=== PATIENT | male | born 1935 | race American Indian/Alaskan Native ===

== ENCOUNTER 2017-02-13 07:30 | Inpatient (IN) | payer MEDICARE ==
[2017-03-14] MEDS ORDERED: VANCOMYCIN/NS 1 GM/250 ML 1 GM/250 ML BAG IV NR (06:00)
--- NOTE | 2017-04-06 11:22 | Anesthesia Consultation ---
Anesthesia Consult and Med Hx Date of service: 04/06/17 - Airway Anesthetic Teeth Evaluation: Good, Partials ROM Head & Neck: Adequate Mental/Hyoid Distance: Adequate Mallampati Class: Class II Intubation Access Assessment: Probably Good - Pulmonary Exam CTA: Yes - Cardiac Exam Cardiac Exam: RRR - Pre-Operative Health Status ASA Pre-Surgery Classification: ASA2 Proposed Anesthetic Plan: General - Pulmonary Hx Smoking: No Hx Sleep Apnea: No (HAKEEM PRE SCREEN HIGH RISK) - Cardiovascular System Hx Hypertension: Yes (X 7 MONTHS) - Central Nervous System Hx Psychiatric Problems: No - Hematic Hx Anemia: No - Other Systems Hx Alcohol Use: No Hx Substance Use: No Hx Cancer: No
[2017-04-06 11:29] LABS: Eosinophils % (Auto) 1.7 % (0.0-4.3); Hematocrit 38.5 % (35.5-45.6); Hemoglobin 12.5 gm/dl (11.8-15.2); Mean Corpuscular HGB Conc 32 % (32-34); Mean Corpuscular Hemoglobin 28 pg (28-32); Mean Corpuscular Volume 85 fl (84-94); Platelet Count 196 K/mm3 (140-440); Red Blood Count 4.51 M/mm3 (3.65-5.03); Red Cell Distribution Width 15.3 % (13.2-15.2)
[2017-04-06 11:43] LABS: INR 1.13 (0.87-1.13)
[2017-04-06 11:44] LABS: Partial Thromboplastin Time 29.3 Sec. (24.2-36.6)
[2017-04-06 12:16] LABS: Alanine Aminotransferase 11 units/L (7-56); Albumin 4.2 g/dL (3.9-5); Albumin/Globulin Ratio 1.2 %; Alkaline Phosphatase 97 units/L (35-129); Anion Gap 17 mmol/L; Blood Urea Nitrogen 18 mg/dL (9-20); Calcium 8.8 mg/dL (8.4-10.2); Carbon Dioxide 25 mmol/L (22-30); Chloride 108.6 mmol/L (98-107); Glucose 100 mg/dL (75-100); Potassium 3.8 mmol/L (3.6-5.0); Sodium 147 mmol/L (137-145); Total Protein 7.6 g/dL (6.3-8.2)
[2017-04-06] MEDS ORDERED: PEPCID PO NR (13:00)
[2017-04-06] MEDS ORDERED: LACTATED RINGERS 1,000 ML IV SCH (13:00)
[2017-04-06] MEDS ORDERED: VERSED IV NR (13:00)
[2017-04-11] MEDS ORDERED: NACL BACTERIOSTATIC INFILTRATI ONE (06:36)
[2017-04-11] MEDS ORDERED: TRANEXAMIC ACID ONE (07:19)
[2017-04-11] MEDS ORDERED: NACL ONE (07:19)
[2017-04-11] MEDS ORDERED: ACD-A 500 ML IV ONE (07:19)
[2017-04-11] MEDS ORDERED: NACL P/F VIAL (10 ML) 30 ML ONE (07:19)
[2017-04-11] MEDS ORDERED: VANCOMYCIN VIAL ONE (07:19)
[2017-04-11] MEDS ORDERED: NEOSPORIN GU IR ONE ×2 (07:20→08:27)
[2017-04-11] MEDS ORDERED: MARCAINE-EPI 0.25%-1:200,000 INFILTRATI ONE ×2 (07:20→08:27)
[2017-04-11] MEDS ORDERED: LACTATED RINGERS 1,000 ML ONE ×2 (07:20→09:12)
[2017-04-11] MEDS ORDERED: PEPCID ONE (07:34)
[2017-04-11] MEDS ORDERED: MORPHINE ONE (07:38)
--- NOTE | 2017-04-11 07:45 | Anesthesia Day of Surgery ---
Anesthesia Day of Surgery - Day of Surgery Patient Examined: Yes Patient H&P Reviewed: Yes Patient is NPO: Yes Cardiac Clearance: Yes
[2017-04-11] MEDS ORDERED: DIPRIVAN 10 MG/ML IV ONE (07:53)
[2017-04-11] MEDS ORDERED: KETALAR ONE (07:53)
[2017-04-11] MEDS ORDERED: NEURONTIN PO NR (08:00)
[2017-04-11] MEDS ORDERED: ANCEF/STERILE WATER 2 GM/20 ML IV NR (08:00)
[2017-04-11] MEDS ORDERED: PEPCID PO NR (08:00)
[2017-04-11] MEDS ORDERED: LACTATED RINGERS 1,000 ML IV ONE (08:00)
[2017-04-11] MEDS ORDERED: MORPHINE IV ONE (08:00)
[2017-04-11] MEDS ORDERED: VERSED IV PRN (08:00)
[2017-04-11] MEDS ORDERED: NACL 0.9% IR ONE (08:27)
[2017-04-11] MEDS ORDERED: TRANEXAMIC ACID IV ONE (08:27)
[2017-04-11] MEDS ORDERED: NACL INFILTRATI ONE (08:27)
[2017-04-11] MEDS ORDERED: VANCOMYCIN VIAL IRRIGATION ONE (08:27)
[2017-04-11] MEDS ORDERED: NACL P/F VIAL (10 ML) INFILTRATI ONE (08:27)
[2017-04-11] MEDS ORDERED: XYLOCAINE MPF 2% ONE ×3 (08:57→09:52)
[2017-04-11] MEDS ORDERED: NEO SYNEPHRINE/NS Syringe(OR USE) IV ONE (09:00)
[2017-04-11] MEDS ORDERED: ePHEDrine SULFATE ONE (09:00)
[2017-04-11] MEDS ORDERED: NACL P/F VIAL (10 ML) 10 ML ONE (09:01)
[2017-04-11] MEDS ORDERED: NACL 0.9% 1000 ML 2,000 ML ONE (09:27)
--- NOTE | 2017-04-11 09:37 | Admit Criteria Form ---
Admission Criteria Documentation: AMBULATORY SURGERY EXCEPTION CRITERIA Ambulatory Surgery Exception Criteria ( Place 'X' for any and all applicable criteria): Surgery or procedure performed on ambulatory basis may require inpatient stay for[A] ANY ONE of the following(1)(2)(3)(4)(5)(6)(7)(8)(9): [X] I. A preoperative situation, condition, or finding that warrants inpatient stay as indicated by ANY ONE of the following: [X] a) Inpatient care needed because of severity of a disease or condition rather than the surgery (eg, severe cardiac or respiratory disease, severe infection) (15) (16 ) (17) (18) [] b) Emergent procedure (eg, angioplasty for acute ischemia)(19) [] c) Complex surgical approach or situation as indicated by ANY ONE of the following(3): [] i) Open approach needed instead of usual endoscopic, transcatheter, or other less invasive procedure [] ii) Difficult approach because of previous operation [] iii) Airway monitoring required after open neck procedures(20)(21) [] iv) Large mass requiring unusually extensive dissection [] v) Additional complicating feature requiring inpatient care (eg, drain management)(22(23): [] d) Major surgery in a pt with high anesthetic risk as indicated by ANY ONE of the following (2)(3)(5)(7)(8): [] i) ASA risk class III or higher (severe systemic disease impairing function) [D] [] ii) Advanced age (eg, older than 85 years)(14)(24) [] iii) Symptomatic heart failure(25) [] iv) Symptomatic asthma or COPD(8)(21) [] v) Morbid obesity with hemodynamic or respiratory problems(20)( 21)(26)(27) [] vi) Obstructive sleep apnea(20)(21) [] vii) Former premature infants who are younger than 60 weeks [] viii) High risk for severe postoperative abnormalities (eg, severe postoperative hypocalcemia after parathyroidectomy for severe hyperparathyroidism)(27)( 28) [] ix) Unstable angina(25) [] e) Drug-related risk requiring inpatient stay as indicated by ANY ONE of the following(5)(10)(14)(32)(33) [] i) Procedure requires discontinuing drugs or other therapy (eg , antiarrhythmic medication, antiseizure medication), which necessitates inpatient observation or treatment.(18)(31) [] ii) Major surgery and high risk drug use as indicated by ANY ONE of the following: [] 1) Active abuse of cocaine or similar drug [] 2) Monoamine oxidase inhibitor use [] 3) Other drug identified as posing risk [] f) Inadequate outpatient care situation as indicated by ANY ONE of the following(5)(10)(14)(32)(33) [] i) Patient lives remote from medical facility and procedure has urgent complication potential, and temporary nearby residence cannot be arranged [] ii) Patient will have postprocedure incapacitation and inadequate assistance at home, or alternative level of care cannot be arranged. [] iii) Patient will have long general anesthesia or procedure side effect resolution time, and competent person to stay with patient on first postoperative night at home or alternative level of care cannot be arranged. []iv) Other inadequate outpatient situation that cannot be handled by other means [] II. A perioperative event, condition, or finding that warrants inpatient stay as indicated by ANY ONE of the following (1)(2)(3): [] a) Inadequate physiologic recovery: cardiovascular, respiratory, or hemodynamic status not normal or near preoperative baseline(18) [] b) Hemodynamic instability [] c) Patient not alert with near normal or baseline mental status [] d) Temperature not normal or as expected and not appropriate for outpatient treatment of condition [] e) Ambulatory or appropriate activity level status not yet achieved post procedure [E](34)(35)(36) [] f) Operative site not appropriate (eg, unexpected or excessive drainage or bleeding) [] g) Postoperative effects not resolved or adequately managed (eg, significant pain or vomiting not appropriate for outpatient or next level of care)(10)(12) [] h) Complicating features requiring inpatient care as indicated by ANY ONE of the following(37): [] i) Severe complications of procedure (eg, bowel injury, airway compromise, vascular injury,severe hemorrhage) [] ii) Extensive (eg, dissection far beyond usual scope of procedure ) or prolonged (eg, 120 minutes beyond usual) surgery needed requiring inpatient postoperative care [] iii) Conversion to an open or complex procedure that requires inpatient care (eg, open vs laparoscopic cholecystectomy, abdominal vs vaginal hysterectomy)(38) [] iv) Comorbid condition or test result identified during or post procedure that requires inpatient care (7) [] v) Malignant hyperthermia(30) [] vi) Other complicating feature requiring inpatient care(22)(23) Inpatient stay may be needed until ALL of the following are present (1)(2)(3)(4) (5)(6)(10)(14)(33)(40): []a) Physiologic recovery: cardiovascular, respiratory, and hemodynamic status normal or near preoperative baseline []b) Hemodynamic stability []c) Patient alert, with near normal or baseline mental status []d) Temperature appropriate: patient afebrile or temperature appropriate for outpt treatment of condition []e) Activity level appropriate: ambulatory or appropriate activity level post procedure []f) Operative site appropriate as indicated by ALL of the following: []i) Site dry or with expected drainage []ii) Any blood noted is as expected for procedure. []g) Postoperative effects resolved or managed as indicated by ALL of the following: []i) Pain management appropriate for outpatient (or next level of) care(10) []ii) Minimal nausea and vomiting: if present, successfully treated with oral medication(12) []iii) Headache, dizziness, or drowsiness (if present) are mild. []h) Voiding status acceptable as indicated by ANY ONE of the following: []i) Voiding spontaneously []ii) No voiding but instructions given for follow-up in 6 to 8 hours []iii) Urinary catheter in place, and instructions given for follow-up []i) Complicating features requiring inpatient care manageable at a lower level of care(37) []j) Comorbid conditions manageable at a lower level of care(37) The original [employer] content created by [employer] has been revised. The portions of the content which have been revised are identified through the use of italic text or in bold, and [employer] has neither reviewed nor approved the modified material. All other unmodified content is copyright [employer]. Please see references footnoted in the original [employer] edition 2016 Admission Criteria Met: Yes
[2017-04-11] MEDS ORDERED: NACL 0.9% 100 ML ONE (09:56)
--- NOTE | 2017-04-11 10:08 | Short Stay Summary ---
Short Stay Documentation Date of service: 04/11/17 - History H&P: obtained from office - Allergies and Medications Current Medications: Allergies No Known Allergies Allergy (Verified 02/26/15 08:30) Home Medications Medication Instructions Recorded Confirmed Last Taken Type AtorvaSTATin [Lipitor] 10 mg PO DAILY 02/01/17 02/01/17 Unknown History Aspirin [Adult Low Dose Aspirin EC] 81 mg PO DAILY 04/03/17 04/03/17 Unknown History Losartan [Cozaar] 50 mg PO QDAY 04/03/17 04/03/17 Unknown History Active Medications Cefazolin Sodium (Ancef/Sterile Water 2 Gm/20 Ml) 2 gm IV PREOP NR Stop: 04/11/17 12:00 Celecoxib (Celebrex) 200 mg PO PREOP NR Stop: 04/11/17 12:00 Last Admin: 04/11/17 07:30 Dose: 200 mg Famotidine (Pepcid) 20 mg PO PREOP NR Stop: 04/11/17 21:00 Last Admin: 04/11/17 07:30 Dose: 20 mg Gabapentin (Neurontin) 300 mg PO PREOP NR Stop: 04/11/17 12:00 Last Admin: 04/11/17 07:30 Dose: 300 mg Midazolam HCl (Versed) 2 mg IV PREOP PRN PRN Reason: Anxiety Stop: 04/11/17 12:00 Last Admin: 04/11/17 07:42 Dose: 2 mg - Brief post op/procedure progress note Date of procedure: 04/11/17 Pre-op diagnosis: degenerative arthritis right hip Post-op diagnosis: same Procedure: Right Total hip replacement, anterior approach Anesthesia: GETA Findings: djd Surgeon: MAURICE HIDALGO Hostler Helper: TREV GORDON Estimated blood loss: other (250cc autologous transfusion 125cc) - Disposition Condition at discharge: Stable - Discharge Diagnoses (1) Degenerative joint disease of right hip Status: Acute Qualifiers: Osteoarthritis type: primary Qualified Code(s): M16.11 - Unilateral primary osteoarthritis, right hip Short Stay Discharge Plan Follow up with: DARSHAN SOLOMON MD [Primary Care Provider] - 7 Days
[2017-04-11] MEDS ORDERED: MORPHINE IV PRN (10:30)
--- NOTE | 2017-04-11 10:57 | XRay Report ---
INTRAOPERATIVE RIGHT HIP RADIOGRAPH INDICATION: Right hip fracture, osteoarthritis. COMPARISON: None similar. FINDINGS: Intraoperative fluoroscopic guidance provided. Image demonstrates right hip arthroplasty. CONCLUSION: Intraoperative fluoroscopic guidance provided, as described. Thank you for the opportunity to participate in this patient's care.
[2017-04-11] MEDS: COZAAR PO SCH (11:00)
--- NOTE | 2017-04-11 12:22 | Post Anesthesia Evaluation ---
- Post Anesthesia Evaluation Patient Participated: Yes Airway Patent: Yes Stable Respiratory Function: Yes Nausea/Vomiting: No Temp > 96.8F: Yes Pain Manageable: Yes Adequeate Hydration: Yes Anesthesia Complications: No
--- NOTE | 2017-04-12 07:57 | Discharge Summary ---
Providers - Providers Date of Admission: 04/11/17 06:03 Attending physician: MAURICE HIDALGO 04/11/17 Consult to Case Management [CONS] Routine Services Needed at Discharge: Home Health Services Physical Therapy DME Equipment Notified:: . Phone number called:: . Was contact made?: No Time called:: 01:00 04/11/17 13:43 Physical Therapy Evaluation and Treat [CONS] Routine Comment: Reason For Exam: s/p right total hip replacement Mode of Transport?: Wheelchair Weight bearing status?: Partial wt bearing Assistive devices?: Yes If so list: Walker Primary care physician: DARSHAN SOLOMON Hospitalization Condition: Stable - Discharge Diagnoses (1) Degenerative joint disease of right hip Status: Acute Qualifiers: Osteoarthritis type: primary Qualified Code(s): M16.11 - Unilateral primary osteoarthritis, right hip Core Measure Documentation - Palliative Care Palliative Care/ Comfort Measures: Not Applicable - Core Measures Any of the following diagnoses?: none - VTE Discharge Requirements Deep Vein Thrombosis/Pulmonary Embolism Present on Admission: No Has pt received <5 days of overlap therapy or INR<2.0: No Anticoagulant overlap therapy prescribed at discharge: Yes Exam - Constitutional Vitals: Temp Pulse Resp BP Pulse Ox 99.9 F H 84 20 110/58 95 04/12/17 07:15 04/12/17 07:15 04/12/17 07:15 04/12/17 07:15 04/12/17 07:15 Plan Weight Bearing Status: Weight Bear as Tolerated Diet: regular Wound: keep clean and dry Durable Medical Equipment Needed Upon Discharge: Walker-Dino Follow up with: DARSHAN SOLOMON MD [Primary Care Provider] - 7 Days
[2017-04-12] MEDS: COZAAR PO SCH (09:00)
[2017-04-12] MEDS: NORCO 5/325 PO PRN ×2 (09:49→18:41)
--- NOTE | 2017-04-12 10:50 | Progress Note ---
Subjective Date of service: 04/12/17 Interval history: 1st POD after total hip replacement Patient is out of the bed, walking with physical therapist. He was comfortable all night. Pain is well controlled with pain meds. Ambulates well. No residual neurological deficit. No anesthesia complications Objective - Constitutional Vitals: Vital Signs - 12hr 04/11/17 04/12/17 04/12/17 23:00 04:00 07:15 Temperature 99.2 F 100.0 F H 99.9 F H Pulse Rate [ 84 96 H 84 Left] Pulse Rate [ 84 96 H 84 Right From Monitor] Respiratory 20 20 20 Rate Blood Pressure 136/69 103/61 110/58 [Left Arm] O2 Sat by Pulse 97 95 95 Oximetry - Labs CBC & Chem 7: 04/06/17 11:10 04/06/17 11:10
[2017-04-12] MEDS: TYLENOL PO PRN ×2 (13:12→23:44)
[2017-04-13] MEDS: NORCO 5/325 PO PRN ×2 (08:16→22:20)
[2017-04-13] MEDS: COZAAR PO SCH (09:58)
--- NOTE | 2017-04-13 16:18 | Progress Note ---
Assessment and Plan - Patient Problems (1) H/O total hip arthroplasty Status: Acute Qualifiers: Laterality: right Qualified Code(s): Z96.641 - Presence of right artificial hip joint Plan to address problem: Will check urine for UTI, hold off discharge pending resolution of febrile episode. Continue with progressive ambulation, DVT prophylaxis. Subjective Date of service: 04/13/17 Interval history: Total hip arthroplasty, low-grade temperature. Incision clean there is mild swelling, no evidence of DVT. Out of bed. Objective Vital signs: Vital Signs - 12hr 04/13/17 04/13/17 08:00 11:48 Temperature 100.4 F H 97.9 F Pulse Rate [ 98 H 95 H Apical] Pulse Rate [ 98 H 95 H Left] Pulse Rate [ 98 H 95 H Right From Monitor] Respiratory 20 16 Rate Blood Pressure 173/90 96/67 [Left Arm] O2 Sat by Pulse 97 Oximetry - Labs CBC & BMP: 04/06/17 11:10 04/06/17 11:10
[2017-04-13 18:49] LABS: Bacteria,Urine 1+ /HPF (Negative); Bilirubin,Urine NEG (Negative); Blood,Urine MOD (Negative); Ketones,Urine NEG (Negative); Leukocyte Esterase,Urine NEG (Negative); Nitrite,Urine NEG (Negative); Protein,Urine <15 mg/dL mg/dL (Negative); Urobilinogen,Urine < 2.0 mg/dL (<2.0); WBC,Urine < 1.0 /HPF (0.0-6.0)
[2017-04-14 08:24] VITALS: BP 137/76
[2017-04-14] MEDS: COZAAR PO SCH (09:47)
[2017-04-14] MEDS ORDERED: DULCOLAX PR ONE (12:12)
--- NOTE | 2017-04-14 12:13 | Progress Note ---
Assessment and Plan - Patient Problems (1) H/O total hip arthroplasty Status: Acute Qualifiers: Laterality: right Qualified Code(s): Z96.641 - Presence of right artificial hip joint Plan to address problem: Out of bed. Afebrile. Stable for discharge to home today. Follow up in the office on discharge. Continue with rehabilitation program and DVT prophylaxis. Subjective Date of service: 04/14/17 Interval history: Afebrile overnight, urine unremarkable. There is a small blister over the lateral skin flap, to be drained. Objective Vital signs: Vital Signs - 12hr 04/14/17 04/14/17 07:30 09:47 Temperature 98.8 F Pulse Rate 88 Pulse Rate [ 88 Apical] Pulse Rate [ 88 Left] Pulse Rate [ 88 Right From Monitor] Respiratory 18 Rate Blood Pressure 137/76 Blood Pressure 137/76 [Left Arm] O2 Sat by Pulse 97 Oximetry - Labs CBC & BMP: 04/06/17 11:10 04/06/17 11:10
--- NOTE | 2017-04-15 10:28 | Discharge Summary ---
Providers - Providers Date of Admission: 04/11/17 06:03 Date of discharge: 04/14/17 Attending physician: MAURICE HIDALGO 04/11/17 Consult to Case Management [CONS] Routine Services Needed at Discharge: Home Health Services Physical Therapy DME Equipment Notified:: . Phone number called:: . Was contact made?: No Time called:: 01:00 04/11/17 13:43 Physical Therapy Evaluation and Treat [CONS] Routine Comment: Reason For Exam: s/p right total hip replacement Mode of Transport?: Wheelchair Weight bearing status?: Partial wt bearing Assistive devices?: Yes If so list: Walker Primary care physician: DARSHAN SOLOMON Hospitalization Reason for admission: DJD right hip Condition: Stable Procedures: rright total hip arthroplasty, anterior approach, Damien, noncemented. Hospital course: uneventful Disposition: TO HOME OR SELFCARE - Discharge Diagnoses (1) H/O total hip arthroplasty Status: Acute Qualifiers: Laterality: right Qualified Code(s): Z96.641 - Presence of right artificial hip joint Core Measure Documentation - Palliative Care Palliative Care/ Comfort Measures: Not Applicable - Core Measures Any of the following diagnoses?: none Exam - Constitutional Vitals: Temp Pulse Resp BP Pulse Ox 98.8 F 88 18 137/76 97 04/14/17 07:30 04/14/17 09:47 04/14/17 07:30 04/14/17 09:47 04/14/17 07:30 Plan Activity: advance as tolerated, no driving until cleared by PCP, up only with assistance, fall precautions Weight Bearing Status: Weight Bear as Tolerated Diet: regular Wound: per your surgeon's advice Durable Medical Equipment Needed Upon Discharge: Walker-Rolling, Bedside commode -elevated Follow up with: DARSHAN SOLOMON MD [Primary Care Provider] - 7 Days MAURICE HIDALGO MD [Staff Physician] - 7 Days
--- NOTE | 2017-04-17 01:27 | Operative Report ---
PREOPERATIVE DIAGNOSIS: Degenerative arthritis, right hip. PROCEDURE: Right total hip replacement arthroplasty (direct anterior approach). SURGEON: Gabriel Alvarado MD. EDGE KITTER: Nneka Payne RN. ANESTHESIA: Local with general. COMPLICATIONS: None. DESCRIPTION OF PROCEDURE: Once the patient was in the surgical room, a time-out was carried out to identify the patient and procedure. The patient was prepped and draped in usual sterile fashion. The patient was placed on surgical table (Tricia) in the appropriate position to allow for exposure of the both hip joints. Once this was done, the procedure was carried out by making an incision of 10 cm in length that was entered at 1 inch below the anterior superior iliac spine and 1 inch in front extending across the front of the thigh. Dissection was carried out through the subcutaneous tissue. Hemostasis was achieved. Fascia was exposed. By incising the fascia and elevation of the area, coagulation of the fat pad vessels was done, resection of fat pad, exposure of the hip capsule, retractors applied, capsulectomy at the anterior hip joint was done. Following that the femoral neck was cut using the napkin ring technique. The femoral head was removed. The procedure continued by insertion of the appropriate retractors to the posterior acetabulum, the acetabulum was then reamed using fluoroscopy without any problems. The acetabular liner was applied and locked in place and was found to be stable. Once this was done, the procedure was continued by fixation with multiple screws and insertion of the liner. At this point, the attention was carried out to the femur. The femoral neck was prepared by first releasing of the capsule posteriorly and superiorly, to allow for full mobilization of the capsule. This allowed for the insertion of the hook to be able to mobilize the hip. Using the Trciia table, the patient's leg was brought into external rotation and abduction and extension. Once this was done, the procedure was continued by the insertion of a ean cutter, ____ cutter, rasps. Once the ____ of femur was done, the appropriate rasp was applied. The femoral neck was applied and this was reduced into the socket. Measurement of lengthening was done. Once it was determined the component was removed. The actual femur hook was inserted. The hip was then assembled and reduced into the socket. The hip joint was stable. The wound was irrigated with tranexamic acid. Marcaine was injected along the wound. The wound was closed with #1 Vicryl interrupted suture for the capsule and subcutaneous tissues with 2-0 Vicryl. The skin was closed with skin clips. Compression device was applied. The patient tolerated the procedure well. There were no complications. JOB# [id number] HE/CLARA
--- NOTE | 2017-04-17 05:29 | Discharge Summary ---
PREOPERATIVE DIAGNOSIS: Degenerative arthritis, right hip. POSTOPERATIVE DIAGNOSIS: Degenerative arthritis, right hip. PROCEDURE: Right total hip replacement arthroplasty. COMPLICATIONS: None. BRIEF HISTORY: The patient is an 81-year-old male, who was admitted to the hospital without diagnosis. The patient underwent surgery without any problems or complications. The patient is ambulatory at this point. Discharged to his home environment on Lortab 10 mg and aspirin. He is to see me back in 10 days. His prognosis is good at this point. JOB# [id number] HE/CLARA
== END 2017-04-14 16:00 | disposition home or self-care (01) | DRG 470 ==
LOC: 3A 04-11 06:03 → 2B-SURG 04-11 10:47
PROC: 0SR90JZ Replacement of Right Hip Joint with Synthetic Substitute, Open Approach (ICD-10-PCS; principal; 2017-04-11)
DX: M16.11 Unilateral primary osteoarthritis, right hip (principal); I10 Essential (primary) hypertension; Z79.82 Long term (current) use of aspirin; Z79.899 Other long term (current) drug therapy
CPT/HCPCS: 36415; 62324; 80053; 81001; 85025; 85610; 85730; 86850; 86900; 86901; 88304; 88305; 88311; A9270-GY; C1776; J0690; J2250; J2270; J2370; J2704; J3370; J7030; J7120

== ENCOUNTER 2019-04-08 15:01 | Emergency (ER) | payer MEDICARE, OTHER ==
--- NOTE | 2019-04-08 15:31 | Event Note ---
ED Screening Note ED Screening Note: LLQ pain mild diarrhea nothing like this before rx lisinopril statin pmh htn hpld psh hip replaced vss no fever no cig/no etoh/no drugs blood ok no travel This initial assessment/diagnostic orders/clinical plan/treatment(s) is/are subject to change based on patients health status, clinical progression and re- assessment by fellow clinical providers in the ED. Further treatment and workup at subsequent clinical providers discretion. Patient/guardian urged not to elope from the ED as their condition may be serious if not clinically assessed and managed. Initial orders include: labs urine
[2019-04-08 15:33] VITALS: BP 121/82
[2019-04-08 16:02] LABS: Bilirubin,Urine NEG (Negative); Blood,Urine NEG (Negative); Color,Urine Colorless (Yellow); Protein,Urine <15 mg/dL mg/dL (Negative); RBC,Urine < 1.0 /HPF (0.0-6.0); Urobilinogen,Urine < 2.0 mg/dL (<2.0)
[2019-04-08 16:09] LABS: Hematocrit 38.5 % (35.5-45.6); Hemoglobin 12.6 gm/dl (11.8-15.2); Mean Corpuscular HGB Conc 33 % (32-34); Mean Corpuscular Volume 86 fl (84-94); Platelet Count 216 K/mm3 (140-440); Red Cell Distribution Width 15.2 % (13.2-15.2)
[2019-04-08 16:14] LABS: WBC,Urine < 1.0 /HPF (0.0-6.0)
[2019-04-08 16:26] LABS: Alanine Aminotransferase 10 units/L (7-56); Albumin 4.3 g/dL (3.9-5); BUN/Creatinine Ratio 13; Blood Urea Nitrogen 14 mg/dL (9-20); Calcium 9.2 mg/dL (8.4-10.2); Hemolysis Index 2
[2019-04-08 16:27] LABS: Bilirubin,Direct < 0.2 mg/dL (0-0.2)
[2019-04-08] MEDS ORDERED: NACL 0.9% 1000 ML 1,000 ML IV ONE (16:51)
--- NOTE | 2019-04-08 18:14 | Emergency Department Report ---
ED Abdominal Pain HPI - General Chief Complaint: Abdominal Pain Stated Complaint: L SIDE PAIN Time Seen by Provider: 04/08/19 15:28 Source: patient Mode of arrival: Ambulatory Limitations: No Limitations - History of Present Illness Initial Comments: 83-year-old male comes in reporting severe left side pain that started at 1330 today. Patient at this time denies any pain at this moment. She denies any nausea vomiting. Patient has a history of migraines hypertension prostate hypertrophic. MD Complaint: abdominal pain -: This morning - Related Data Home Medications Medication Instructions Recorded Confirmed Last Taken AtorvaSTATin [Lipitor] 10 mg PO DAILY 02/01/17 04/11/17 04/04/17 Aspirin [Adult Low Dose Aspirin EC] 81 mg PO DAILY 04/03/17 04/11/17 03/28/17 Losartan [Cozaar] 50 mg PO QDAY 04/03/17 04/11/17 04/11/17 05:30 Allergies Allergy/AdvReac Type Severity Reaction Status Date / Time No Known Allergies Allergy Verified 04/08/19 15:02 ED Review of Systems ROS: Stated complaint: L SIDE PAIN Other details as noted in HPI ED Past Medical Hx - Past Medical History Hx Hypertension: Yes Hx Arthritis: Yes (GENERALIZED) Hx Headaches / Migraines: Yes (MIGRAINES) 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 TREATMENT) Hx HIV: No - Surgical History Past Surgical History?: No - Social History Smoking Status: Never Smoker Substance Use Type: None - Medications Home Medications: Home Medications Medication Instructions Recorded Confirmed Last Taken Type AtorvaSTATin [Lipitor] 10 mg PO DAILY 02/01/17 04/11/17 04/04/17 History Aspirin [Adult Low Dose Aspirin EC] 81 mg PO DAILY 04/03/17 04/11/17 03/28/17 History Losartan [Cozaar] 50 mg PO QDAY 04/03/17 04/11/17 04/11/17 05:30 History ED Physical Exam - General Limitations: No Limitations ED Course Vital Signs 04/08/19 04/08/19 15:31 16:48 Temperature 98.2 F Pulse Rate 67 Respiratory 16 16 Rate Blood Pressure 121/82 O2 Sat by Pulse 99 Oximetry ED Medical Decision Making - Lab Data Result diagrams: 04/08/19 15:46 04/08/19 15:46 - Radiology Data Radiology results: report reviewed Patient: JOSSE CRUZ MR#: [id number] : 1935 Acct:[id number] Age/Sex: 83 / M ADM Date: 04/08/19 Loc: ED Attending Dr: Ordering Physician: SEBAS JOHNSON Date of Service: 04/08/19 Procedure(s): CT abdomen pelvis w con Accession Number(s): [id number] cc: SEBAS JOHNSON CT of the abdomen and pelvis with contrast The patient received 100 cc of Omnipaque 300 for intravenous contrast INDICATION: Left lower quadrant pain COMPARISON: 09/04/2016 FINDINGS: Lung bases are clear. The spleen, pancreas, adrenal glands and kidneys show no significant abnormalities with a small left renal cyst noted incidentally. No definite gallbladder or biliary tree abnormality. No fluid or adenopathy in the upper abdomen. Small left hepatic cyst is unchanged. There is moderate vascular calcification without aneurysm. CT of the pelvis shows a normal appendix. Bilateral hip prostheses obscure the lower pelvis prostate appears to be moderately enlarged. No diverticulosis or diverticulitis. No hernia or bowel obstruction. No significant skeletal lesion. IMPRESSION: No acute abnormality. Automated exposure control was utilized to diminish radiation dose. Signer Name: Hamzah Smith MD Signed: 04/08/2019 8:28 PM Workstation Name: [id number] Transcribed By: JANI Dictated By: Hamzah Smith MD Electronically Authenticated By: Hamzah Smith MD Signed Date/Time: 04/08/192027 DD/ 18 TD/TT: - Medical Decision Making 83-year-old male comes in for severe left sided pain that started at 1330. Patient reports no pain at this moment normal physical examination. CT of abdomen shows no acute abnormalities lab work is stable. Patient be discharged to follow-up with his primary care provider. Critical care attestation.: If time is entered above; I have spent that time in minutes in the direct care of this critically ill patient, excluding procedure time. ED Disposition Clinical Impression: Left lower quadrant abdominal pain Disposition: DC-01 TO HOME OR SELFCARE Is pt being admited?: No Does the pt Need Aspirin: No Condition: Stable Instructions: Acute Abdominal Pain (ED) Additional Instructions: Please follow up with Dr. Ronald Solomon her primary care provider in the next 3-4 days. Referrals: RONALD SOLOMON MD [Primary Care Provider] - 3-5 Days Forms: Accompanied Note
--- NOTE | 2019-04-08 20:32 | Cat Scan Report ---
CT of the abdomen and pelvis with contrast The patient received 100 cc of Omnipaque 300 for intravenous contrast INDICATION: Left lower quadrant pain COMPARISON: 09/04/2016 FINDINGS: Lung bases are clear. The spleen, pancreas, adrenal glands and kidneys show no significant abnormalities with a small left renal cyst noted incidentally. No definite gallbladder or biliary ema e abnormality. No fluid or adenopathy in the upper abdomen. Small left hepatic cyst is unchanged. The re is moderate vascular calcification without aneurysm. CT of the pelvis shows a normal appendix. Bilateral hip prostheses obscure the lower pelvis prostate appears to be moderately enlarged. No diverticulosis or diverticulitis. No hernia or bowel obstructio n. No significant skeletal lesion. IMPRESSION: No acute abnormality. Automated exposure control was utilized to diminish radiation dose. Signer Name: Hamzah Smith MD Signed: 04/08/2019 8:28 PM Workstation Name: [id number]
== END 2019-04-08 21:28 | disposition home or self-care (01) ==
LOC: ED 15:01
DX: R10.32 Left lower quadrant pain (principal); I10 Essential (primary) hypertension; M19.90 Unspecified osteoarthritis, unspecified site; G43.909 Migraine, unspecified, not intractable, without status migrainosus; Z86.11 Personal history of tuberculosis; Z79.899 Other long term (current) drug therapy
CPT/HCPCS: 36415; 74177; 80048; 80076; 81001; 83690; 85027; 99284; Q9967

== ENCOUNTER 2020-09-05 02:43 | Emergency (ER) | payer MEDICARE | END 2020-09-05 03:45 | disposition left against medical advice (07) | LOC: ED 02:43 | DX: R10.9 Unspecified abdominal pain (principal); Z53.21 Procedure and treatment not carried out due to patient leaving prior to being seen by health care provider ==